=== PATIENT | female | born 1945 | race Caucasian/White ===

== ENCOUNTER 2020-08-26 14:51 | Outpatient (CLI) | payer MEDICARE ==
[2020-08-27 02:52] LABS: SARS-CoV-2 PCR by NAA Not Detected (NotDetected)
== END 2020-08-26 14:52 | disposition home or self-care (01) ==
LOC: CSHLAB 14:51
PROVIDERS: ATTEND Internal Medicine Pulmonary Disease
DX: Z20.822 Contact with and (suspected) exposure to COVID-19 (principal); J44.9 Chronic obstructive pulmonary disease, unspecified
CPT/HCPCS: 87635; U0003; U0005

== ENCOUNTER 2020-08-30 09:47 | Outpatient (CLI) | payer MEDICARE | END 2020-08-30 09:48 | disposition home or self-care (01) | LOC: CSHCP 09:47 | PROVIDERS: ATTEND Internal Medicine Pulmonary Disease | DX: J44.9 Chronic obstructive pulmonary disease, unspecified (principal); R94.2 Abnormal results of pulmonary function studies | CPT/HCPCS: 94060; 94726; 94729; 94760 ==

== ENCOUNTER 2023-05-13 14:00 | Outpatient (CLI) | payer MEDICARE | END 2023-05-13 14:01 | disposition home or self-care (01) | LOC: CSHCP 14:00 | PROVIDERS: ATTEND Internal Medicine Interventional Cardiology | DX: J44.9 Chronic obstructive pulmonary disease, unspecified (principal) | CPT/HCPCS: 94010; 94726; 94729; 94760 ==